=== PATIENT | female | born 1950 ===

== ENCOUNTER 2025-01-21 10:27 | Outpatient (CLI) | payer MEDICARE, OTHER, SELFPAY | END 2025-01-21 10:28 | disposition home or self-care (01) | PROVIDERS: PCP Family Medicine; Visit Provider Family Medicine | DX: Z01.818 Encounter for other preprocedural examination (principal); E03.9 Hypothyroidism, unspecified; M81.0 Age-related osteoporosis without current pathological fracture | CPT/HCPCS: 80053; 82306; 84443; 87086 ==